=== PATIENT | female | born 1990 | race African-American/Black ===

== ENCOUNTER 2017-02-20 17:44 | Emergency (ER) | payer SELFPAY ==
[~2017-02-20] VITALS: Ht 160 cm; Wt 59.0 kg
[2017-02-20] MEDS ORDERED: IRON159 MG PO (17:58)
[2017-02-20 18:30] LABS: APPEARANCE,URINE CLEAR; BILIRUBIN, URINE NEGATIVE (NEGATIVE); COLOR,URINE YELLOW; GLUCOSE, URINE (UA) NEGATIVE (NEGATIVE); KETONES,URINE NEGATIVE (NEGATIVE); LEUKOCYTE ESTERASE ,URINE 1+ (NEGATIVE); NITRITE,URINE NEGATIVE (NEGATIVE); PH,URINE 5 (4.5-8.0); PROTEIN,URINE 2+ (NEGATIVE); UROBILINOGEN,URINE NORMAL MG/DL (0.0-1.0)
[2017-02-20 18:48] VITALS: BP 107/70
--- NOTE | 2017-02-20 19:06 | Emergency Room Report ---
History of Present Illness General Chief Complaint: Female Urogenital Problems Source: Patient Present Illness HPI 27-year-old female presents to the emergency department complaining of vaginal itching as well as discharge x3 days. Patient denies recent antibiotic use she denies fevers, chills, abdominal pain or tenderness or swelling tender lymph nodes. Patient denies joint pain or history of STI. Patient does report history of yeast infection as well as sterile vaginosis. Patient reports she did notice a malodor and she feels that symptoms are most consistent to she had to vaginosis in the past. Patient denies recent unprotected intercourse. She denies dysuria, hematuria, urgency or frequency. Patient denies . Denies CP, Palpitations, LOC, AMS, dizziness, Changes in Vision, Sensation, paresthesias, or a sudden severe headache. Allergies: Coded Allergies: No Known Allergies (Unverified , 02/20/17) Patient History Past Medical History: see triage record Past Surgical History: none Pertinent Family History: none Last Menstrual Period: 01/23/17 Immunizations: UTD Reviewed Nursing Documentation: PMH: Agreed, PSxH: Agreed Review of Systems All Other Systems: negative except mentioned in HPI Physical Exam Vital Signs Date Time Temp Pulse Resp B/P (MAP) Pulse Ox O2 Delivery O2 Flow Rate FiO2 02/20/17 17:56 98.4 82 18 107/70 100 Room Air Sp02 EP Interpretation: reviewed, normal General Appearance: no apparent distress, alert, GCS 15, non-toxic Head: normocephalic, atraumatic Eyes: bilateral eye normal inspection, bilateral eye PERRL ENT: hearing grossly normal, normal voice Neck: full range of motion Respiratory: chest non-tender, lungs clear, normal breath sounds, speaking full sentences Cardiovascular #1: regular rate, rhythm, no edema Gastrointestinal: normal bowel sounds, non tender, soft Rectal: deferred Genitourinary: normal inspection Musculoskeletal: back normal, gait/station normal, normal range of motion, non- tender Neurologic: alert, oriented x3, responsive, motor strength/tone normal, sensory intact, speech normal, grossly normal Psychiatric: judgement/insight normal Skin: normal color, no rash, warm/dry, well hydrated Lymphatic: no adenopathy Medical Decision Making PA Attestation Dr. way is my supervising Physician whom patient management has been discussed with. Diagnostic Impression: Primary Impression: Vaginitis Qualified Codes: N76.0 - Acute vaginitis ER Course 27-year-old female presents to the emergency department complaining of vaginal itching as well as discharge x3 days. Patient denies recent antibiotic use she denies fevers, chills, abdominal pain or tenderness or swelling tender lymph nodes. Patient denies joint pain or history of STI. Patient does report history of yeast infection as well as sterile vaginosis. Patient reports she did notice a malodor and she feels that symptoms are most consistent to she had to vaginosis in the past. Patient denies recent unprotected intercourse. She denies dysuria, hematuria, urgency or frequency. Patient denies . Denies CP, Palpitations, LOC, AMS, dizziness, Changes in Vision, Sensation, paresthesias, or a sudden severe headache. Ddx considered but are not limited to UTi , Pyelo, STI, Stone, Cystitis, vaginal laceration, vaginitis. Vital signs: are WNL, pt. is afebrile H& PE are most consistent with: Vaginitis. ORDERS: - UA labs are attached - Most indicative of contamination: presence of equal amounts of bacteria and squamous cells, no elevation in inflammatory markers, nitrite negative. some occult blood and rbc's. ED INTERVENTIONS: -Clinically will treat patient for bacterial vaginosis as well as give Diflucan to cover for yeast she will be treated with antibiotics. She is stable for close outpatient followup with [facility]. DISCHARGE: At this time pt. is stable for d/c to home. Will provide printed patient care instructions, and any necessary prescriptions. Care plan and follow up instructions have been discussed with the patient prior to discharge. Labs Test 02/20/17 17:58 Urine Color Yellow Urine Appearance Clear Urine pH 5 (4.5-8.0) Urine Specific [place] 1.020 (1.005-1.035) Urine Protein 2+ (NEGATIVE) Urine Glucose (UA) Negative (NEGATIVE) Urine Ketones Negative (NEGATIVE) Urine Occult Blood 3+ (NEGATIVE) Urine Nitrite Negative (NEGATIVE) Urine Bilirubin Negative (NEGATIVE) Urine Urobilinogen Normal MG/DL (0.0-1.0) Urine Leukocyte Esterase 1+ (NEGATIVE) Urine RBC 2-4 /HPF (0 - 2) Urine WBC 0-2 /HPF (0 - 2) Urine Squamous Epithelial Cells Few /LPF (NONE/OCC) Urine Bacteria Few /HPF (NONE) Last Vital Signs Date Time Temp Pulse Resp B/P (MAP) Pulse Ox O2 Delivery O2 Flow Rate FiO2 02/20/17 18:48 98.4 18 107/70 100 Room Air 02/20/17 17:56 82 Disposition: HOME, SELF-CARE Condition: Stable Scripts Metronidazole* (FLAGYL*) 500 Mg Tablet 500 MG ORAL BID for 7 Days, #14 TAB 0 Refills Prov: Ting Delgado 02/20/17 Fluconazole (FLUCONAZOLE) 100 Mg Tablet 100 MG ORAL DAILY, #3 TAB 0 Refills Prov: Ting Delgado 02/20/17 Patient Instructions: Vaginitis Additional Instructions: Take medications as directed. Follow up with a OBGYN or your PCP within 3-5 days, even if your symptoms have resolved. Return sooner to ED if new symptoms occur, or current symptoms become worse. - Please note that this Emergency Department Report was dictated using [employer] line operator technology software, occasionally this can lead to erroneous entry secondary to interpretation by the dictation equipment. Ting Delgado Feb 20, 2017 19:06
[2017-02-20 19:07] VITALS: BP 116/73
[2017-02-20] MEDS ORDERED: METRONIDAZOLE500 MG ORAL (19:07)
[2017-02-20] MEDS ORDERED: FLUCONAZOLE100 MG ORAL (19:07)
== END 2017-02-20 19:24 | disposition home or self-care (01) ==
LOC: EMR 18:28
DX: N76.0 Acute vaginitis (principal)
CPT/HCPCS: 81003; 99283

== ENCOUNTER 2017-05-04 15:16 | Emergency (ER) | payer SELFPAY ==
[~2017-05-04] VITALS: Ht 160 cm; Wt 59.0 kg
[~2017-05-04 15:16] MED LIST: FLUCONAZOLE100 MG ORAL; IRON159 MG PO; METRONIDAZOLE500 MG ORAL
[2017-05-04 15:38] VITALS: BP 108/68
[2017-05-04 16:13] LABS: APPEARANCE,URINE CLOUDY; BILIRUBIN, URINE NEGATIVE (NEGATIVE); COLOR,URINE PALE YELLOW; GLUCOSE, URINE (UA) NEGATIVE (NEGATIVE); KETONES,URINE NEGATIVE (NEGATIVE); LEUKOCYTE ESTERASE ,URINE 1+ (NEGATIVE); NITRITE,URINE NEGATIVE (NEGATIVE); PH,URINE 5 (4.5-8.0); PROTEIN,URINE 1+ (NEGATIVE); UROBILINOGEN,URINE NORMAL MG/DL (0.0-1.0)
--- NOTE | 2017-05-04 17:44 | Emergency Room Report ---
History of Present Illness General Chief Complaint: Vaginal Source: Patient Present Illness HPI Patient presents with vaginal itching and d/c. Yellowish. Recent antibiotic use for UTI. No dysuria. Has some suprapubic pain and also in back. No fevers. Last menses normal and doesn't think she is . She doesn't believe this is STD. Pain reported 2/10. Mid cycle now and doesn't believe she has cysts. No URI sy, rashes, cough, chest pain, anxiety, polies, extremity pain. H/O anemia. Allergies: Coded Allergies: No Known Allergies (Unverified , 02/20/17) Patient History Past Medical History: see triage record Social History: Denies: smoking Social History Narrative student Last Menstrual Period: 04/27/2017 Reviewed Nursing Documentation: PMH: Agreed; PSxH: Agreed Nursing Documentation-PMH Past Medical History: No History, Except For Review of Systems All Other Systems: negative except mentioned in HPI Physical Exam Vital Signs Date Time Temp Pulse Resp B/P (MAP) Pulse Ox O2 Delivery O2 Flow Rate FiO2 05/04/17 15:28 97.9 87 16 99/66 97 Room Air 97.9 Sp02 EP Interpretation: reviewed, normal General Appearance: well appearing, no apparent distress, GCS 15 Head: normocephalic Eyes: bilateral eye normal inspection, bilateral eye PERRL ENT: moist mucus membranes Neck: supple Respiratory: lungs clear, normal breath sounds Cardiovascular #1: regular rate, rhythm Cardiovascular #2: 2+ radial (R) Gastrointestinal: normal inspection, normal bowel sounds, non tender, no mass, non-distended Genitourinary: no CVA tenderness, adnexa normal, cervix normal, ext genitalia/ vag normal, other - axial uterus, slightly retroverted, NO CMT Musculoskeletal: back normal, gait/station normal, normal range of motion Neurologic: alert, oriented x3, grossly normal Psychiatric: mood/affect normal Skin: normal inspection, warm/dry Medical Decision Making Diagnostic Impression: Primary Impression: Bacterial vaginosis Additional Impression: Monilial vaginitis ER Course Patient with vaginal d/c. Need to sent wet mount to lab. Looks like yeast. + clue cells. UA negative. Discussed findings with patient . Patient stable for outpatient observation and treatment. Laboratory Tests Test 05/04/17 15:36 Urine Color Pale yellow Urine Appearance Cloudy Urine pH 5 (4.5-8.0) Urine Specific [place] 1.020 (1.005-1.035) Urine Protein 1+ (NEGATIVE) H Urine Glucose (UA) Negative (NEGATIVE) Urine Ketones Negative (NEGATIVE) Urine Occult Blood 2+ (NEGATIVE) H Urine Nitrite Negative (NEGATIVE) Urine Bilirubin Negative (NEGATIVE) Urine Urobilinogen Normal MG/DL (0.0-1.0) Urine Leukocyte Esterase 1+ (NEGATIVE) H Urine RBC 5-10 /HPF (0 - 2) H Urine WBC 2-4 /HPF (0 - 2) Urine Squamous Epithelial Cells Many /LPF (NONE/OCC) H Urine Bacteria Moderate /HPF (NONE) H Urine HCG, Qualitative Negative (NEGATIVE) Microbiology Date/Time Source Procedure Growth Status 05/04/17 17:20 Vaginal Wet Prep - Final Complete Last Vital Signs Date Time Temp Pulse Resp B/P (MAP) Pulse Ox O2 Delivery O2 Flow Rate FiO2 05/04/17 18:02 97.9 78 16 108/68 100 Room Air 97.9 Status: improved Disposition: HOME, SELF-CARE Condition: Improved Scripts Clotrimazole (GYNE-LOTRIMIN*) 45 Gm Cream.appl 1 APPLIC VG QHS, #45 GM 0 Refills Prov: Rafa Evans M.D. 05/04/17 Fluconazole (FLUCONAZOLE) 100 Mg Tablet 100 MG ORAL DAILY, #1 TAB 0 Refills Take at end of flagyl. Prov: Rafa Evans M.D. 05/04/17 Metronidazole* (FLAGYL*) 500 Mg Tablet 500 MG ORAL TID, #21 TAB Prov: Rafa Evans M.D. 05/04/17 Referrals: NON PHYSICIAN (PCP) Rafa Evans M.D. May 04, 2017 17:44
[2017-05-04] MEDS ORDERED: metroNIDAZOLE 500mg tab ORAL ONE (17:45)
[2017-05-04] MEDS ORDERED: FLUCONAZOLE100 MG ORAL (17:49)
[2017-05-04] MEDS ORDERED: METRONIDAZOLE500 MG ORAL (17:49)
[2017-05-04] MEDS ORDERED: GYNE-LOTRIMIN45 GM VG (17:49)
[2017-05-04 18:02] VITALS: BP 108/68
== END 2017-05-04 18:33 | disposition home or self-care (01) ==
LOC: EMR 15:41
DX: N76.0 Acute vaginitis (principal); B37.3 Candidiasis of vulva and vagina
CPT/HCPCS: 81003; 81025; 87086; 87210; 99284

== ENCOUNTER 2017-05-15 04:59 | Emergency (ER) | payer SELFPAY ==
[~2017-05-15] VITALS: Ht 160 cm; Wt 59.0 kg
[~2017-05-15 04:59] MED LIST changes: +GYNE-LOTRIMIN45 GM VG
--- NOTE | 2017-05-15 05:25 | Emergency Room Report ---
History of Present Illness General Chief Complaint: Abdominal Pain Source: Patient Present Illness HPI 27 yo F c/o abd pain, R sided, started last night. intermittent. states she has been feeling nauseous the last few days, took a test and it was positive. no fever or chills. +diarrhea. no abnormal vaginal bleeding or DC. no surgeries Allergies: Coded Allergies: No Known Allergies (Unverified , 02/20/17) Patient History Past Medical History: see triage record Past Surgical History: none Pertinent Family History: none Last Menstrual Period: april 22 Reviewed Nursing Documentation: PMH: Agreed; PSxH: Agreed Review of Systems All Other Systems: negative except mentioned in HPI Physical Exam Vital Signs Date Time Temp Pulse Resp B/P (MAP) Pulse Ox O2 Delivery O2 Flow Rate FiO2 05/15/17 05:01 98.2 96 18 114/70 97 Room Air 98.2 Sp02 EP Interpretation: reviewed, normal General Appearance: normal inspection, well appearing, no apparent distress, alert, GCS 15, non-toxic Head: normocephalic, atraumatic Eyes: bilateral eye normal inspection, bilateral eye PERRL, bilateral eye EOMI ENT: normal ENT inspection, normal pharynx, normal voice, moist mucus membranes Neck: normal inspection, full range of motion, supple Respiratory: normal inspection, lungs clear, normal breath sounds, no respiratory distress, no retraction, no wheezing, speaking full sentences, chest symmetrical Cardiovascular #1: normal inspection, regular rate, rhythm, no edema, normal capillary refill Cardiovascular #2: 2+ radial (R), 2+ radial (L) Gastrointestinal: normal inspection, non tender, soft, non-distended, no guarding, other - nontender entire abdomen, no grimace to deep palpation, nontender mcburneys points, neg murphys, no cva tenderness. Genitourinary: no CVA tenderness Musculoskeletal: normal inspection, back normal, normal range of motion, non- tender Neurologic: normal inspection, alert, oriented x3, responsive, motor strength/ tone normal, sensory intact, normal gait, speech normal Psychiatric: normal inspection, judgement/insight normal, memory normal Skin: normal inspection, normal color, no rash, warm/dry, well hydrated, normal turgor Medical Decision Making ER Course 27 yo F with R sided abd pain abd exam benign at this time also positive test at home DDX: , ectopic, UTI/PYELO, appendicitis although at this time abd nontender Plan: labs, ua, poss ultrasound, hold CT for now ER course: Stable during stay Signed out patient to Dr Cooley pending labs, ultrasound, reassess for final dispo Last Vital Signs Date Time Temp Pulse Resp B/P (MAP) Pulse Ox O2 Delivery O2 Flow Rate FiO2 05/15/17 05:01 98.2 96 18 114/70 97 Room Air 98.2 Referrals: NON PHYSICIAN (PCP) Mary Jane Vizcaino M.D. May 15, 2017 05:25
[2017-05-15 05:41] LABS: BASOPHILS % (AUTO) 0.4 % (0.0-2.0); EOSINOPHILS % (AUTO) 2.6 % (0.0-3.0); HEMATOCRIT 29.4 % (37.0-47.0); LYMPHOCYTES % (AUTO) 26.3 % (20.0-45.0); MEAN CORPUSCULAR VOLUME 69 FL (80-99); MONOCYTES % (AUTO) 8.7 % (1.0-10.0); NEUTROPHILS % (AUTO) 61.9 % (45.0-75.0); PLATELET COUNT 204 K/UL (150-450); RED BLOOD COUNT 4.27 M/UL (4.20-5.40); RED CELL DISTRIBUTION WIDTH 17.2 % (11.6-14.8); WHITE BLOOD COUNT 6.2 K/UL (4.8-10.8)
[2017-05-15 05:44] LABS: APPEARANCE,URINE CLEAR; BILIRUBIN, URINE NEGATIVE (NEGATIVE); COLOR,URINE PALE YELLOW; GLUCOSE, URINE (UA) NEGATIVE (NEGATIVE); KETONES,URINE NEGATIVE (NEGATIVE); LEUKOCYTE ESTERASE ,URINE 1+ (NEGATIVE); NITRITE,URINE NEGATIVE (NEGATIVE); PH,URINE 7 (4.5-8.0); PROTEIN,URINE NEGATIVE (NEGATIVE); UROBILINOGEN,URINE NORMAL MG/DL (0.0-1.0)
[2017-05-15 06:00] LABS: ANION GAP 7 mmol/L (5-15); BLOOD UREA NITROGEN 9 mg/dL (7-18); CALCIUM 9.4 MG/DL (8.5-10.1); CARBON DIOXIDE 27 MMOL/L (21-32); CHLORIDE 104 MMOL/L (98-107); POTASSIUM 3.3 MMOL/L (3.5-5.1); SODIUM 138 MMOL/L (136-145)
[2017-05-15 06:04] LABS: ALANINE AMINOTRANSFERASE 20 U/L (12-78); ALBUMIN 4.1 G/DL (3.4-5.0); ALKALINE PHOSPHATASE 63 U/L (46-116); ASPARTATE AMINO TRANSFERASE 15 U/L (15-37); BILIRUBIN,TOTAL 0.3 MG/DL (0.2-1.0)
[2017-05-15 07:19] VITALS: BP 109/72
[2017-05-15] MEDS ORDERED: FERROUS SULFAT325 MG ORAL (07:19)
[2017-05-15 08:44] VITALS: BP 109/72
== END 2017-05-15 08:44 | disposition home or self-care (01) ==
LOC: EMR 05:18
DX: R10.9 Unspecified abdominal pain (principal); R11.0 Nausea; Z32.01 Encounter for pregnancy test, result positive
CPT/HCPCS: 36415; 80053; 81003; 83690; 84702; 85025; 86850; 86900; 86901; 87086; 99283